=== PATIENT | female | born 1955 | race American Indian/Alaskan Native ===

== ENCOUNTER 2019-06-08 19:03 | Emergency (ER) | payer OTHER ==
[2019-06-08] MEDS ORDERED: dexAMETHasone 20 MG/5 ML VIAL IM ONE (23:21)
[2019-06-08] MEDS ORDERED: ONDANSETRON 4 MG ODT TAB PO ONE (23:21)
[2019-06-08] MEDS ORDERED: KETOROLAC 30 MG/1 ML INJ IM ONE (23:21)
[2019-06-08] MEDS ORDERED: HYDROmorphone 1 MG/1 ML INJ IM ONE (23:21)
--- NOTE | 2019-06-09 00:31 | Emergency Department Report ---
ED Back Pain/Injury HPI - General Chief Complaint: Back Pain/Injury Stated Complaint: BACK PAIN Source: patient Limitations: No Limitations - History of Present Illness Initial Comments: Patient is a 64-year-old -[place] female with a history of hypertension who presents to the ED with acute onset persistent low back pain that radiates to the right leg for the last 3 days after strenuous cleaning and heavy lifting at home. Patient denies fall, traumatic injury, dizziness, chest pain, shortness of breath, hematuria, dysuria, numbness and tingling or weakness of lower extremities bilaterally, syncope or neck pain. Patient states that in the last 12 hours she has not been able to rest because of severe pain. MD Complaint: back pain, other (low back pain that radiates to the right leg) -: Sudden, days(s) (3) Similar Symptoms Previously: No Place: home Radiation: right leg Severity: severe Severity scale (0 -10): 7 Quality: sharp, aching Consistency: constant Improves With: none Worsens With: movement, walking Context: while lifting, turning/twisting Associated Symptoms: denies other symptoms. denies: confusion, weakness, numbness, difficulty walking, cough, difficulty urinating, fever/chills, constipation, headaches, abdominal pain, loss of appetite, nausea/vomiting, seizure, shortness of breath - Related Data Previous Rx's Medication Instructions Recorded Last Taken Type Gabapentin 300 mg PO Q12H PRN #30 cap 06/09/19 Unknown Rx Naproxen 500 mg PO Q12H PRN #24 tablet 06/09/19 Unknown Rx methOCARBAMOL [Robaxin TAB] 750 mg PO QHS PRN #15 tablet 06/09/19 Unknown Rx predniSONE [Deltasone] 60 mg PO QDAY #15 tab 06/09/19 Unknown Rx Allergies Allergy/AdvReac Type Severity Reaction Status Date / Time No Known Allergies Allergy Unverified 06/08/19 19:11 ED Review of Systems ROS: Stated complaint: BACK PAIN Other details as noted in HPI Constitutional: denies: chills, fever Eyes: denies: eye pain, eye discharge, vision change ENT: denies: ear pain, throat pain Respiratory: denies: cough, shortness of breath, wheezing Cardiovascular: denies: chest pain, palpitations Endocrine: no symptoms reported Gastrointestinal: denies: abdominal pain, nausea, diarrhea Genitourinary: denies: urgency, dysuria, discharge Musculoskeletal: back pain (lower back), arthralgia, myalgia. denies: joint sw elling Skin: denies: rash, lesions Neurological: denies: headache, weakness, paresthesias Psychiatric: denies: anxiety, depression Hematological/Lymphatic: denies: easy bleeding, easy bruising ED Past Medical Hx - Past Medical History Previous Medical History?: Yes Hx Hypertension: Yes - Surgical History Past Surgical History?: No - Social History Smoking Status: Never Smoker Substance Use Type: None - Medications Home Medications: Home Medications Medication Instructions Recorded Confirmed Last Taken Type Gabapentin 300 mg PO Q12H PRN #30 cap 06/09/19 Unknown Rx Naproxen 500 mg PO Q12H PRN #24 tablet 06/09/19 Unknown Rx methOCARBAMOL [Robaxin TAB] 750 mg PO QHS PRN #15 tablet 06/09/19 Unknown Rx predniSONE [Deltasone] 60 mg PO QDAY #15 tab 06/09/19 Unknown Rx ED Physical Exam - General Limitations: No Limitations General appearance: alert, in no apparent distress - Head Head exam: Present: atraumatic, normocephalic, normal inspection - Eye Eye exam: Present: normal appearance, PERRL, EOMI Pupils: Present: normal accommodation - ENT ENT exam: Present: normal exam, normal orophraynx, mucous membranes moist, TM's normal bilaterally, normal external ear exam - Neck Neck exam: Present: normal inspection, full ROM - Respiratory Respiratory exam: Present: normal lung sounds bilaterally. Absent: respiratory distress, wheezes, rales, rhonchi, chest wall tenderness, accessory muscle use, decreased breath sounds, prolonged expiratory - Cardiovascular Cardiovascular Exam: Present: regular rate, normal rhythm, normal heart sounds. Absent: systolic murmur, diastolic murmur, rubs, gallop - GI/Abdominal GI/Abdominal exam: Present: soft, normal bowel sounds. Absent: tenderness, guarding, hyperactive bowel sounds, organomegaly, mass - Extremities Exam Extremities exam: Present: normal inspection, full ROM, normal capillary refill - Back Exam Back exam: Present: normal inspection, full ROM, tenderness (Palpable lumbosacral paraspinal musculoskeletal tenderness), muscle spasm, paraspinal tenderness - Neurological Exam Neurological exam: Present: alert, oriented X3, CN II-XII intact, normal gait, reflexes normal - Psychiatric Psychiatric exam: Present: normal affect, normal mood - Skin Skin exam: Present: warm, dry, intact, normal color. Absent: rash ED Course Vital Signs 06/08/19 06/09/19 20:52 00:26 Temperature 99.5 F Pulse Rate 82 75 Respiratory 18 17 Rate Blood Pressure 170/69 Blood Pressure 152/85 [Left] O2 Sat by Pulse 99 99 Oximetry ED Medical Decision Making - Medical Decision Making This is a 64-year-old female who presented to the ED for evaluation after she developed acute onset persistent severe nontraumatic low back pain that radiates to the right leg for 3 days after heavy lifting and extensive cleaning of her house. In the ED, patient is alert and oriented x3 and is not in any distress. Patient was treated for pain in the ED and on reevaluation, patient's pain is well controlled with medications. Patient was discharged home on pain medications and advised to follow-up with her primary care physician in 5 to 7 days for reevaluation or return to the ED immediately if symptoms get worse. - Differential Diagnosis muscle spasm; sciatica; lumbar disc disease; muscle strain Critical care attestation.: If time is entered above; I have spent that time in minutes in the direct care of this critically ill patient, excluding procedure time. ED Disposition Clinical Impression: Spasm of muscle of lower back Acute low back pain with right-sided sciatica Qualifiers: Back pain laterality: right Qualified Code(s): M54.41 - Lumbago with sciatica, right side Disposition: - TO HOME OR SELFCARE Is pt being admited?: No Does the pt Need Aspirin: No Condition: Stable Instructions: Muscle Spasm (ED), Sciatica (ED), Acute Low Back Pain (ED) Additional Instructions: Take medication with food, drink plenty fluids and follow-up with your primary care physician in 7 to 10 days for reevaluation. Return to the ED immediately if symptoms get worse. Prescriptions: methOCARBAMOL [Robaxin TAB] 750 mg PO QHS PRN #15 tablet PRN Reason: Muscle Spasm predniSONE [Deltasone] 60 mg PO QDAY #15 tab Gabapentin 300 mg PO Q12H PRN #30 cap PRN Reason: Pain , Severe (7-10) Naproxen 500 mg PO Q12H PRN #24 tablet PRN Reason: Pain , Severe (7-10) Referrals: [facility] [Outside] - 3-5 Days Time of Disposition: 00:33 Print Language: SPANISH
[2019-06-09 01:08] VITALS: BP 136/77
== END 2019-06-09 01:07 | disposition home or self-care (01) ==
LOC: EDBD → ED 19:03
DX: M54.41 Lumbago with sciatica, right side (principal); M62.830 Muscle spasm of back; I10 Essential (primary) hypertension; Z79.899 Other long term (current) drug therapy
CPT/HCPCS: 96372; 99282; J1100; J1170; Q0162